=== PATIENT | male | born 1955 | race African-American/Black ===

== ENCOUNTER 2016-11-03 20:19 | Emergency (ER) | payer OTHER ==
[~2016-11-03] VITALS: Ht 175.3 cm; Wt 71.9 kg
[~2016-11-03 20:19] MED LIST: AMLODIPINE-BEN1 EAC3; CLONIDINE HCL0.2 MG PO; CLONIDINE HCL0.3 MG; GLUCOPHAGE1000 M1; LOSARTAN POTAS100 MG PO; METFORMIN HCL1000 MG PO; SIMVASTATIN20 M1 PO; SIMVASTATIN20 MG PO
[2016-11-03 20:57] LABS: CHLORIDE 104 mEq/L (99-109); POTASSIUM 3.7 mEq/L (3.7-5.4); SODIUM 132 mEq/L (136-147)
[2016-11-03 20:58] LABS: GLUCOSE 393 mg/dL (70-99)
[2016-11-03 21:00] LABS: ANION GAP 17 MEQ/L (2-14); HEMATOCRIT 13.2 % (38.0-50.0); MCH 28.6 PG (29.0-34.0); MCHC 31.8 G/DL (30.0-36.0); MCV 89.8 FL (86-99); MEAN PLAT.VOLUME 9.4 uM^3 (9.0-12.4); PLATELET COUNT 394 K/uL (156-360); RBC DIS.WIDTH-CV 17.8 % (11.8-14.6); RBC DIS.WIDTH-SD 58.6 % (39-53); RED BLOOD COUNT 1.47 M/uL (4.00-5.50); WHITE BLOOD COUNT 38.3 K/uL (4.1-10.2)
[2016-11-03 21:02] LABS: GFR ESTIMATE (CALCULATED) 22 mL/min/
[2016-11-03 21:05] LABS: UREA NITROGEN (BUN) 47 mg/dL (9-23)
[2016-11-03 21:16] LABS: CREATINE KINASE 214 IU/L (1-294); TOTAL CK 214 IU/L (1-294)
[2016-11-03 21:23] LABS: CK-MB 0.9 ng/mL (0.0-4.9)
[2016-11-03 21:33] LABS: BASE EXCESS -14.9 mEq/L (-3 to +3); BICARBONATE 11.6 mEq/L (22-26); COMMENTS - BLOOD GASES A+C+; PCO2 29 mm Hg (35-45); PO2 < 32 mm Hg (80-100); SITE RR; pH 7.21 (7.35-7.45)
[2016-11-03 21:34] LABS: DEVICE ROOM AIR; TOTAL RESP RATE 25 resp/min
[2016-11-03 21:40] LABS: EOSINOPHIL (%) 0 % (0-5); HEMATOLOGY COMMENT 1 REV; IMMATURE GRANULOCYTE (%) 0.6 % (0.0-0.7); IMMATURE GRANULOCYTE COUNT 0.2 K/uL; LYMPHOCYTE COUNT 0.6 K/uL (1.0-2.8); MONOCYTE (%) 1.5 % (3-12); MONOCYTE COUNT 0.6 K/uL (0-0.8); NEUTROPHIL (%) 96.2 % (45-76); NEUTROPHIL COUNT 36.9 K/uL (1.8-6.4); PLAT.SUFFICIENCY ADEQUATE; USER ID BW1
[2016-11-03 21:52] LABS: HEMATOCRIT 12.8 % (38.0-50.0); MCV 92.1 FL (86-99)
[2016-11-03 22:41] LABS: INTER. NORMALIZED RATIO 1.4; PROTHROMBIN TIME 14.1 (9.2-11.2)
[2016-11-03 22:44] VITALS: BP 150/93
[2016-11-03 23:06] LABS: SAMPLE HEMOLYSIS CHECK 1; SAMPLE ICTERIC CHECK 0; SAMPLE LIPEMIA CHECK 0
[2016-11-03 23:32] VITALS: BP 116/69
[2016-11-03 23:37] LABS: POINT-OF-CARE METER ID UU14100415
[2016-11-04 00:13] VITALS: BP 116/69
[2016-11-04 00:13] LABS: ERTH.SED.RATE ND MM/HR (0-20)
== END 2016-11-04 00:17 | disposition short-term general hospital (02) ==
LOC: EME 20:19 → EDBD 20:19 → EME 20:19 → EDOF 21:47 → EME 21:47
PROVIDERS: Emergency Medicine; Surgery
DX: A41.9 Sepsis, unspecified organism (principal); R65.21 Severe sepsis with septic shock; M72.6 Necrotizing fasciitis; E10.10 Type 1 diabetes mellitus with ketoacidosis without coma; D64.9 Anemia, unspecified; N28.9 Disorder of kidney and ureter, unspecified; R41.82 Altered mental status, unspecified; D72.829 Elevated white blood cell count, unspecified; E87.1 Hypo-osmolality and hyponatremia; G82.20 Paraplegia, unspecified; E78.5 Hyperlipidemia, unspecified; I10 Essential (primary) hypertension
CPT/HCPCS: 36600; 70450; 71010; 74176; 80048; 81003; 82010; 82550; 82553; 82803; 82948; 83605; 85014 GA; 85018 GA; 85025; 85610; 85651; 86140; 86850; 86900; 86901; 86920; 87040; 87076; 87077; 87086; 87185; 87186; 87801; 93005; 99281; 99285; J1815; J2543; J3370; J7030; J7050; P9016

== ENCOUNTER → 2017-06-24 | Outpatient (CLI) | payer MEDICARE | END | disposition home or self-care (01) | LOC: CDC 15:38 | DX: Z01.810 Encounter for preprocedural cardiovascular examination (principal); L89.214 Pressure ulcer of right hip, stage 4; R94.31 Abnormal electrocardiogram [ECG] [EKG] | CPT/HCPCS: 93000 ==

== ENCOUNTER 2017-11-29 13:58 | Inpatient (IN) | payer OTHER ==
[~2017-11-29] VITALS: Ht 180.3 cm; Wt 75.0 kg
[~2017-11-29 13:58] MED LIST changes: -METFORMIN HCL1000 MG PO; +METFORMIN HCL500 MG PO
[2017-11-29 15:19] LABS: BASOPHIL (%) 0.3 % (0-1); EOSINOPHIL (%) 1.1 % (0-5); EOSINOPHIL COUNT 0.1 K/uL (0-0.3); HEMATOCRIT 27.8 % (38.0-50.0); HEMOGLOBIN 8.5 G/DL (12.5-16.6); IMMATURE GRANULOCYTE (%) 0.4 % (0.0-0.7); LYMPHOCYTE (%) 7.1 % (15-42); LYMPHOCYTE COUNT 0.9 K/uL (1.0-2.8); MCH 30.1 PG (29.0-34.0); MCHC 30.6 G/DL (30.0-36.0); MCV 98.6 FL (86-99); MONOCYTE (%) 3.9 % (3-12); MONOCYTE COUNT 0.5 K/uL (0-0.8); NEUTROPHIL (%) 87.2 % (45-76); NEUTROPHIL COUNT 10.4 K/uL (1.8-6.4); PLATELET COUNT 313 K/uL (156-360); RBC DIS.WIDTH-CV 16.8 % (11.8-14.6); RBC DIS.WIDTH-SD 61.2 % (39-53); RED BLOOD COUNT 2.82 M/uL (4.00-5.50)
[2017-11-29 15:24] LABS: INTER. NORMALIZED RATIO 1.2
[2017-11-29 15:27] LABS: PTT 21.6 SEC (25-37)
[2017-11-29 15:31] LABS: CHLORIDE 108 mEq/L (99-109); POTASSIUM 4.6 mEq/L (3.7-5.4); SODIUM 139 mEq/L (136-147)
[2017-11-29 15:32] LABS: MAGNESIUM 2.4 mg/dL (1.3-2.7)
[2017-11-29 15:33] LABS: GLUCOSE 124 mg/dL (70-99)
[2017-11-29 15:37] LABS: CREATININE 1.8 mg/dL (0.6-1.3); GFR ESTIMATE (CALCULATED) 50 mL/min/ (58.99-99999)
[2017-11-29 15:38] LABS: UREA NITROGEN (BUN) 45 mg/dL (9-23)
[2017-11-29 15:42] LABS: TROP-I INTERPRETATION NEGATIVE; TROPONIN-I < 0.01 ng/mL (0.0-0.30)
[2017-11-29 18:24] LABS: APPEARANCE TURBID ((CLEAR)); BILIRUBIN NEGATIVE; BLOOD LARGE; COLOR AMBER ((YELLOW)); GLUCOSE (STRIP) 50; KETONES NEGATIVE; LEUKOCYTES LARGE; NITRITE NEGATIVE; PROTEIN (STRIP) >=500; SPECIFIC GRAVITY 1.016 (1.000-1.030); UROBILINOGEN 0.2 MG/DL (0.2-1.0)
[2017-11-29 18:40] LABS: RED BLOOD CELLS TNTC /HPF (0-5); UCUL ADDED? YES; WHITE BLOOD CELLS TNTC /HPF (0-5)
[2017-11-29] MEDS ORDERED: AMLODIPINE BESY10 MG PO (19:20)
[2017-11-29] MEDS ORDERED: APRESOLINE100 MG PO (19:20)
[2017-11-29] MEDS ORDERED: FINASTERIDE5 MG PO (19:20)
[2017-11-29] MEDS ORDERED: FUROSEMIDE40 MG PO (19:20)
[2017-11-29] MEDS ORDERED: CARVEDILOL3.125 MG PO (19:20)
[2017-11-29] MEDS ORDERED: TYLENOL EXTRA500 MG PO (19:20)
[2017-11-29 22:50] VITALS: BP 151/70
[2017-11-29 23:57] VITALS: BP 151/70
[2017-11-30 06:36] LABS: HEMATOCRIT 24.4 % (38.0-50.0); HEMOGLOBIN 7.3 G/DL (12.5-16.6); MCH 29.8 PG (29.0-34.0); MCHC 29.9 G/DL (30.0-36.0); MCV 99.6 FL (86-99); PLATELET COUNT 307 K/uL (156-360); RBC DIS.WIDTH-CV 16.4 % (11.8-14.6); RBC DIS.WIDTH-SD 59.3 % (39-53); RED BLOOD COUNT 2.45 M/uL (4.00-5.50); WHITE BLOOD COUNT 11.5 K/uL (4.1-10.2)
[2017-11-30 07:00] LABS: CHLORIDE 106 MEQ/L (99-109); CREATININE 1.8 MG/DL (0.6-1.3); GFR ESTIMATE (CALCULATED) 50 mL/min/ (58.99-99999); GLUCOSE 106 mg/dL (70-99); POTASSIUM 4.7 MEQ/L (3.7-5.4); SODIUM 138 MEQ/L (136-147); UREA NITROGEN (BUN) 44 mg/dL (9-23)
[2017-11-30 07:28] VITALS: BP 130/65
[2017-11-30 12:15] VITALS: BP 128/70
[2017-11-30 14:27] LABS: TYPE OF FLUID THORACENTESIS
[2017-11-30 14:42] LABS: APPEARANCE CLOUDY-BLOODY; BODY FLUID RBC'S 639000 /MM^3 (0-100); BODY FLUID WBC'S 3078 /MM^3 (0-500)
[2017-11-30 15:10] LABS: BODY FLUID GLUCOSE 87 MG/DL; BODY FLUID LDH 344 IU/L; BODY FLUID PROTEIN 4.3 G/DL
[2017-11-30 15:32] LABS: HEMATOCRIT 25.2 % (38.0-50.0); HEMOGLOBIN 7.7 G/DL (12.5-16.6); MCV 98.4 FL (86-99)
[2017-11-30 16:17] VITALS: BP 132/69
[2017-11-30 16:37] LABS: BODY FLUID EOSINOPHILS 3 % (0-25); MONONUCLEAR WBC'S 57 %; POLYNUCLEAR WBC'S 41 % (0-25)
[2017-11-30 16:38] LABS: COMMENT MANY MACHROPHAGES
[2017-11-30 21:10] VITALS: BP 127/60
[2017-11-30 22:25] LABS: HEMATOCRIT 24.9 % (38.0-50.0); HEMOGLOBIN 7.7 G/DL (12.5-16.6); MCV 97.3 FL (86-99)
[2017-11-30 23:20] VITALS: BP 113/62
[2017-12-01 05:54] LABS: HEMOGLOBIN 7.5 G/DL (12.5-16.6); MCV 98.8 FL (86-99)
[2017-12-01 07:28] VITALS: BP 140/84
[2017-12-01 11:13] VITALS: BP 137/66
[2017-12-01 13:55] LABS: HEMATOCRIT 26.2 % (38.0-50.0); HEMOGLOBIN 7.9 G/DL (12.5-16.6); MCV 98.5 FL (86-99)
[2017-12-01 16:34] VITALS: BP 131/68
[2017-12-01 19:55] VITALS: BP 128/64
[2017-12-01 22:20] VITALS: BP 124/82
[2017-12-02] VITALS: BP 109/60
[2017-12-02 03:59] VITALS: BP 117/62
[2017-12-02 05:58] LABS: HEMATOCRIT 25.4 % (38.0-50.0); HEMOGLOBIN 7.8 G/DL (12.5-16.6); MCH 30.5 PG (29.0-34.0); MCHC 30.7 G/DL (30.0-36.0); MCV 99.2 FL (86-99); PLATELET COUNT 320 K/uL (156-360); RBC DIS.WIDTH-CV 16.3 % (11.8-14.6); RBC DIS.WIDTH-SD 59.3 % (39-53); RED BLOOD COUNT 2.56 M/uL (4.00-5.50); WHITE BLOOD COUNT 8.4 K/uL (4.1-10.2)
[2017-12-02 06:15] LABS: CHLORIDE 105 MEQ/L (99-109); GFR ESTIMATE (CALCULATED) 36 mL/min/ (58.99-99999); GLUCOSE 112 mg/dL (70-99); POTASSIUM 5.6 MEQ/L (3.7-5.4); SODIUM 138 MEQ/L (136-147); UREA NITROGEN (BUN) 53 mg/dL (9-23)
[2017-12-02 06:26] LABS: CREATININE 2.4 MG/DL (0.6-1.3)
[2017-12-02 08:10] VITALS: BP 116/65
[2017-12-02 11:46] VITALS: BP 115/59
[2017-12-02 15:52] VITALS: BP 128/68
[2017-12-03 07:16] VITALS: BP 123/63
[2017-12-03] MEDS ORDERED: OXYCODONE HCL5 MG PO (14:54)
[2017-12-03] MEDS ORDERED: HYOSCYAMINE0.125 M1 SL (14:54)
[2017-12-03] MEDS ORDERED: ATIVAN0.5 MG PO (14:54)
[2017-12-03 15:45] VITALS: BP 128/73
[2017-12-04 01:00] VITALS: BP 136/70
[2017-12-04 07:18] VITALS: BP 133/63
[2017-12-04] MEDS ORDERED: MORPHINE CON20 MG/M1 PO (11:00)
== END 2017-12-04 15:09 | disposition hospice, home (50) | DRG 686 ==
LOC: EME 13:58 → 5EAST 19:52 → EDOF 19:52 → ENRESERV 19:53 → 5EAST 22:15 → ENPENDDIS 12-04 → 5EAST 12-04 15:09
PROVIDERS: Emergency Medicine; Hospitalist; Internal Medicine
PROC: 0W993ZX Drainage of Right Pleural Cavity, Percutaneous Approach, Diagnostic (ICD-10-PCS; principal; 2017-11-30)
DX: C67.9 Malignant neoplasm of bladder, unspecified (principal); J91.0 Malignant pleural effusion; J96.01 Acute respiratory failure with hypoxia; J18.9 Pneumonia, unspecified organism; Y95 Nosocomial condition; Z51.5 Encounter for palliative care; I31.3 Pericardial effusion (noninflammatory); I13.0 Hypertensive heart and chronic kidney disease with heart failure and stage 1 through stage 4 chronic kidney disease, or unspecified chronic kidney disease; N18.3 Chronic kidney disease, stage 3 (moderate); I50.9 Heart failure, unspecified; N39.0 Urinary tract infection, site not specified; N13.30 Unspecified hydronephrosis; I42.9 Cardiomyopathy, unspecified; G82.20 Paraplegia, unspecified; D63.0 Anemia in neoplastic disease; E11.22 Type 2 diabetes mellitus with diabetic chronic kidney disease; E78.5 Hyperlipidemia, unspecified; E86.0 Dehydration; J98.11 Atelectasis; N32.0 Bladder-neck obstruction; R59.0 Localized enlarged lymph nodes; K80.20 Calculus of gallbladder without cholecystitis without obstruction; K74.60 Unspecified cirrhosis of liver; Z82.49 Family history of ischemic heart disease and other diseases of the circulatory system; Z87.891 Personal history of nicotine dependence; Z89.511 Acquired absence of right leg below knee; Z99.3 Dependence on wheelchair
CPT/HCPCS: 71045; 71250; 74176; 76942; 80048; 81003; 82945; 82948; 83615 91; 83735; 83880; 84157; 84484; 85014; 85018; 85025; 85027; 85610; 85730; 87077; 87086; 87186; 88108; 89051; 90686; 93005; 93971; 94799; 99281; 99285; J0692; J1650; J1815; J2270; J2405